=== PATIENT | male | born 2005 | race Two or more races ===

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

== ENCOUNTER 2025-04-11 18:52 | Emergency (ER) | payer OTHER ==
[~2025-04-11] VITALS: Ht 172.7 cm; Wt 71.7 kg
[2025-04-11 19:39] VITALS: BP 117/65; O2SAT 99
[2025-04-11] MEDS ORDERED: KETOROLAC TROMETHAMINE 60 MG VIAL IM STA (20:56)
[2025-04-11 22:18] LABS: BASO % 0.5 % (0.1-1.2); EOS # 0.28 (0.04-0.54); EOS % 3.6 % (0.7-7.0); LYMPH # 2.06 (1.18-3.74); LYMPH % 26.6 % (19.3-53.1); MEAN PLATELET VOLUME 10.80 fl (9.4-12.4); MONO # 0.41 (0.24-0.82); MONO % 5.3 % (4.7-12.5); NEUT # 4.94 (1.56-6.13); NEUT % 63.9 % (34.0-71.1); RED CELL DISTRIBUTION WIDTH 12.5 % (11.6-14.4)
[2025-04-11 22:57] LABS: ALT/SGPT 36 U/L (12-78); AST/SGOT 17 U/L (15-37); BILIRUBIN TOTAL 0.65 mg/dL (0.3-1.2); BUN CREA RATIO 17 (7.0-25.0); CREATININE SERUM 0.94 mg/dL (0.70-1.30); GFR 103.38; GLOBULINA 3.4 G/DL (2.4-3.5); GLUCOSE FASTING 135 mg/dL (65-100); OSMOLALITY SERUM 286 MOSM/KG (275-295)
[2025-04-11 23:05] LABS: CKMB < 1.0 NG/ML (0.5-3.6)
[2025-04-12] MEDS ORDERED: IBU600 MG PO (00:16)
== END 2025-04-12 00:38 | disposition home or self-care (01) ==
LOC: ER 18:53 → EMR PED 18:56 → ER 18:56 → EMR PED 04-12 00:38
PROVIDERS: Pediatrics
DX: M94.0 Chondrocostal junction syndrome [Tietze] (principal); R07.89 Other chest pain